=== PATIENT | female | born 1985 | race Two or more races ===

== ENCOUNTER → 2016-08-20 | Outpatient (REF) | payer OTHER | LOC: M SFHCLERA 13:51 | PROVIDERS: ATTEND Family Medicine | DX: J02.9 Acute pharyngitis, unspecified (principal); N39.0 Urinary tract infection, site not specified ==

== ENCOUNTER 2016-09-07 11:58 | Outpatient (CLI) | payer OTHER ==
[~2016-09-07] VITALS: Ht 158.8 cm; Wt 47.0 kg
[~2016-09-07 11:58] MED LIST: diphenhydrAMINE 25 MG CAP PO SCH
[2016-09-07] MEDS ORDERED: INFLIXIMAB IV ONE (12:15)
[2016-09-07] MEDS ORDERED: NS IV ONE (12:15)
[2016-09-07] MEDS ORDERED: NS 1,000 ML IV SCH (12:15)
[2016-09-07] MEDS ORDERED: OMEP40CA2 PO (15:00)
[2016-09-07] MEDS ORDERED: AUGM875T27 PO (15:00)
[2016-09-07] MEDS ORDERED: BENT10CA PO (15:01)
== END 2016-09-07 15:00 | disposition home or self-care (01) ==
LOC: M INFU 11:58
PROVIDERS: ATTEND Internal Medicine
DX: K50.00 Crohn's disease of small intestine without complications (principal)
CPT/HCPCS: 96413; 96415; J1745

== ENCOUNTER → 2016-10-22 | Outpatient (CLI) | payer OTHER ==
[~2016-10-22] MED LIST changes: +AUGM875T27 PO; +BENT10CA PO; +OMEP40CA2 PO; -diphenhydrAMINE 25 MG CAP PO SCH
[2016-10-22 20:08] LABS: MEAN CORPUSCULAR HEMOGLOBIN 30.6 pg (27.0-33.0); MEAN CORPUSCULAR HGB CONC 33.2 g/dl (32.0-36.5); MEAN CORPUSCULAR VOLUME 92.1 fl (80.0-96.0); RED CELL DISTRIBUTION WIDTH 12.3 % (11.5-14.5); WHITE BLOOD COUNT 6.2 K/mm3 (4.0-10.0)
== END ==
LOC: M LRY 10:19
PROVIDERS: ATTEND Internal Medicine Gastroenterology
DX: K50.00 Crohn's disease of small intestine without complications (principal); R21 Rash and other nonspecific skin eruption
CPT/HCPCS: 36415; 80299; 82397; 85027; 85652; 86140; G0463

== ENCOUNTER → 2016-10-23 | Outpatient (REF) | payer OTHER | LOC: M LAB REF 08:16 | PROVIDERS: ATTEND Internal Medicine Gastroenterology | DX: K50.00 Crohn's disease of small intestine without complications (principal); R21 Rash and other nonspecific skin eruption ==

== ENCOUNTER 2016-10-25 09:53 | Outpatient (CLI) | payer OTHER ==
[~2016-10-25 09:53] MED LIST changes: +INFLIXIMAB IV ONE; +NS 1,000 ML IV SCH; +NS IV ONE; +diphenhydrAMINE 25 MG CAP PO SCH
== END 2016-10-25 12:35 | disposition home or self-care (01) ==
LOC: M INFU 09:53
PROVIDERS: ATTEND General Practice
DX: K50.00 Crohn's disease of small intestine without complications (principal)
CPT/HCPCS: 96413; 96415; J1745

== ENCOUNTER 2016-12-02 12:59 | Outpatient (RCR) | payer OTHER ==
[~2016-12-02 12:59] MED LIST changes: -INFLIXIMAB IV ONE; -NS 1,000 ML IV SCH; -NS IV ONE; -diphenhydrAMINE 25 MG CAP PO SCH
[2016-12-07] MEDS ORDERED: INFL10VL IV (11:29)
== END 2016-12-12 ==
LOC: M OT 12:59
PROVIDERS: ATTEND Family Medicine
DX: Z51.89 Encounter for other specified aftercare (principal); M65.4 Radial styloid tenosynovitis [de Quervain]

== ENCOUNTER 2016-12-07 11:17 | Emergency (ER) | payer OTHER ==
[~2016-12-07] VITALS: Ht 157.5 cm; Wt 49.9 kg
[2016-12-07] MEDS ORDERED: INFL10VL IV (11:29)
[2016-12-07] MEDS ORDERED: NS 1,000 ML IV ONE (13:15)
[2016-12-07] MEDS ORDERED: methylPREDNISolone INJ 125 MG/2 ML VIAL (J2930) IV ONE (13:15)
[2016-12-07 13:53] LABS: BASO % 0.2 % (0.0-1.0); EOS # 0.1 K/mm3 (0.0-0.50); EOS % 0.9 % (0.0-3.0); LARGE UNSTAINED CELL # 0.1 K/mm3 (0.0-0.4); LARGE UNSTAINED CELL % 1.1 % (0.0-4.0); LYMPH % 21.4 % (24.0-44.0); MEAN CORPUSCULAR HEMOGLOBIN 31.6 pg (27.0-33.0); MEAN CORPUSCULAR HGB CONC 34.2 g/dl (32.0-36.5); MEAN CORPUSCULAR VOLUME 92.4 fl (80.0-96.0); MONO # 0.3 K/mm3 (0.0-0.8); MONO % 2.7 % (0.0-5.0); NEUTROPHILS # 6.8 K/mm3 (1.8-7.7); NEUTROPHILS % 73.8 % (36.0-66.0); PLATELET COUNT, AUTOMATED 246 k/mm3 (150-450); RED CELL DISTRIBUTION WIDTH 12.8 % (11.5-14.5); WHITE BLOOD COUNT 9.2 K/mm3 (4.0-10.0)
[2016-12-07 13:54] LABS: CONTROL LINE HCG INT CTR LINE PRESENT
[2016-12-07 14:03] LABS: ALBUMIN 4.2 GM/DL (3.2-5.2); ALBUMIN/GLOBULIN RATIO 1.24 (1.00-1.93); ALKALINE PHOSPHATASE 74 U/L (45-117); ALT/SGPT 27 U/L (12-78); AST/SGOT 18 U/L (15-37); BILIRUBIN,DIRECT 0.1 MG/DL (0.0-0.2); BILIRUBIN,TOTAL 0.5 MG/DL (0.2-1.0); TOTAL PROTEIN 7.6 GM/DL (6.4-8.2)
[2016-12-07 14:35] VITALS: BP 100/64
== END 2016-12-07 14:37 | disposition home or self-care (01) ==
LOC: M ED 12:27
DX: K50.90 Crohn's disease, unspecified, without complications (principal); Z88.8 Allergy status to other drugs, medicaments and biological substances; Z88.2 Allergy status to sulfonamides; Z79.899 Other long term (current) drug therapy
CPT/HCPCS: 80076; 84703; 85025; 96374; 99282; J2930

== ENCOUNTER → 2016-12-09 | Outpatient (CLI) | payer OTHER ==
[~2016-12-09] MED LIST changes: +INFL10VL IV
--- NOTE | 2016-12-09 20:48 | REP ---
Clinical: Pain. Technique: AP, lateral, bilateral oblique views right hand. Findings: The osseous structures and joint spaces are intact and normal. There is no evidence for acute fracture or dislocation. Surrounding soft tissues are unremarkable. No subcutaneous emphysema or radiodense foreign body. Impression: Normal right hand examination. No acute fracture or dislocation. . Signed by Hugo Rousseau MD 12/09/2016 05:51 P
== END ==
LOC: M LRY 13:51
PROVIDERS: ATTEND Family Medicine
DX: M65.4 Radial styloid tenosynovitis [de Quervain] (principal)
CPT/HCPCS: 73130; G0463

== ENCOUNTER 2016-12-21 12:11 | Outpatient (CLI) | payer OTHER ==
[2016-12-21] MEDS: diphenhydrAMINE 25 MG CAP PO SCH ×2 (12:24→13:35)
[2016-12-21] MEDS ORDERED: inFLIXimab INJECTION 400 MG in NS 210 ML IV ONE (12:30)
[2016-12-21] MEDS ORDERED: NS 1,000 ML IV SCH (12:30)
== END 2016-12-21 16:45 | disposition home or self-care (01) ==
LOC: M INFU 12:11
PROVIDERS: ATTEND Hospitalist
DX: K50.00 Crohn's disease of small intestine without complications (principal)
CPT/HCPCS: 96413; 96415; J1745

== ENCOUNTER → 2016-12-23 | Outpatient (REF) | payer OTHER ==
[2016-12-29 08:07] LABS: CALPROTECTIN STOOL 41 ug/g (0-120); O+P EXAM Final report (.)
== END ==
LOC: M LAB REF 20:55
PROVIDERS: ATTEND Internal Medicine Gastroenterology
DX: R19.7 Diarrhea, unspecified (principal); R19.5 Other fecal abnormalities

== ENCOUNTER 2017-02-06 08:32 | Emergency (ER) | payer OTHER ==
[~2017-02-06] VITALS: Ht 160 cm; Wt 46.0 kg
[~2017-02-06 08:32] MED LIST changes: -AUGM875T27 PO; +AUGM875T28 PO
[2017-02-06] MEDS ORDERED: NS 1,000 ML IV ONE (09:30)
[2017-02-06] MEDS ORDERED: MORPHINE 4 MG/ML 1ML SYRINGE IV ONE (09:30)
[2017-02-06] MEDS ORDERED: ONDANSETRON 4MG/2ML VIAL (J2405) IV ONE (09:30)
[2017-02-06 09:44] LABS: BASO # 0.1 K/mm3 (0.0-0.2); BASO % 0.9 % (0.0-1.0); EOS # 0.1 K/mm3 (0.0-0.50); EOS % 1.6 % (0.0-3.0); LARGE UNSTAINED CELL # 0.2 K/mm3 (0.0-0.4); LYMPH # 2.8 K/mm3 (1.5-4.5); LYMPH % 39.2 % (24.0-44.0); MEAN CORPUSCULAR HEMOGLOBIN 31.7 pg (27.0-33.0); MEAN CORPUSCULAR HGB CONC 33.5 g/dl (32.0-36.5); MEAN CORPUSCULAR VOLUME 94.8 fl (80.0-96.0); MONO # 0.4 K/mm3 (0.0-0.8); MONO % 5.3 % (0.0-5.0); NEUTROPHILS # 3.7 K/mm3 (1.8-7.7); PLATELET COUNT, AUTOMATED 243 k/mm3 (150-450); RED CELL DISTRIBUTION WIDTH 12.2 % (11.5-14.5); WHITE BLOOD COUNT 7.3 K/mm3 (4.0-10.0)
[2017-02-06 09:55] LABS: ALBUMIN 4.3 GM/DL (3.2-5.2); ALBUMIN/GLOBULIN RATIO 1.08 (1.00-1.93); ALKALINE PHOSPHATASE 79 U/L (45-117); ALT/SGPT 29 U/L (12-78); ANION GAP 5 MEQ/L (8-16); AST/SGOT 21 U/L (15-37); BILIRUBIN,TOTAL 0.8 MG/DL (0.2-1.0); BLOOD UREA NITROGEN 9 MG/DL (7-18); CALCIUM LEVEL 9.2 MG/DL (8.5-10.1); CARBON DIOXIDE LEVEL 28 MEQ/L (21-32); CHLORIDE LEVEL 106 MEQ/L (98-107); CREATININE FOR GFR 0.65 MG/DL (0.55-1.02); GLOMERULAR FILTRATION RATE > 60.0 (>60); GLUCOSE, FASTING 89 MG/DL (70-105); POTASSIUM SERUM 3.6 MEQ/L (3.5-5.1); SODIUM LEVEL 139 MEQ/L (136-145); TOTAL PROTEIN 8.3 GM/DL (6.4-8.2)
[2017-02-06 10:14] VITALS: BP 127/70
[2017-02-06] MEDS ORDERED: PYRI1TAB5 PO (10:36)
[2017-02-06] MEDS ORDERED: NORCOTAB PO (10:36)
[2017-02-06] MEDS ORDERED: ZOFR4TAB3 PO (10:36)
--- NOTE | 2017-02-06 11:30 | REP ---
CT ABDOMEN AND PELVIS WITHOUT CONTRAST: 02/06/2017 COMPARISON: CT with contrast 01/20/2016. CLINICAL HISTORY: Left-sided flank and abdominal pain. FINDINGS: CT ABDOMEN: Renal stone protocol was utilized. The lung bases are clear. Heart is not enlarged. There is no pericardial thickening or effusion. There is no hepatosplenomegaly, focal hepatic mass or intrahepatic biliary dilatation. Gallbladder shows no calcified stone or mass. Adrenal glands are normal. Stomach partially filled with air but no wall thickening or mass. The aorta is without aneurysm and no periaortic or other retroperitoneal pathologic sized lymphadenopathy. Colon shows stool and gas scattered throughout without signs of colitis or diverticulitis in the abdomen proper. Lung window review of all CT slices in the abdomen and pelvis shows no perforation or free air. No abscess. The kidneys show no stone, mass, cyst or hydronephrosis. No perinephric fluid. Their size is symmetric. The left ureter is not dilated and shows a normal course to the bladder. However, on image 105 and 106, there is a 2.5 mm stone at the UVJ bladder wall junction. The right kidney collecting system and ureter show no stone, hydronephrosis or hydroureter UVJ is unremarkable on the right. The bladder itself showed no stone within it. Bone windows show lumbar, lower thoracic spine, posterior elements and the visualized ribs all intact. CT PELVIS: Lumbosacral junction, sacrum, SI joints, pelvis, hips and symphysis pubis are all unremarkable. No bladder wall thickening or mass and the 2.5 mm stone is seen at the left UPJ bladder wall junction. Uterus anteverted and not enlarged. No adnexal mass on the left. The right ovary shows a 1.8 cm dominant follicle (stone defined at 2.5 cm). No pelvic free fluid. Distal left colon, sigmoid and rectum without colitis or diverticulitis. No inflammatory changes about the cecum. No ventral or inguinal hernia. IMPRESSION: 1. There is a 2.5 mm stone in the distal left ureter at the UVJ bladder wall junction (see images 105 and 106) without hydroureter, hydronephrosis, renal stone on either side or ureteral stone on the right. Bladder without wall thickening or stone within it. 2. No colitis, diverticulitis, stricture or mass. No ascites or free air. 3. Dominant follicle right ovary 1.8 cm. No pelvic free fluid. No other finding. Signed by Nawaf Martin MD 02/06/2017 07:32 P
== END 2017-02-06 10:48 | disposition home or self-care (01) ==
LOC: M ED 09:48
DX: N83.01 Follicular cyst of right ovary (principal); N20.1 Calculus of ureter; R11.0 Nausea; K58.9 Irritable bowel syndrome, unspecified; Z88.2 Allergy status to sulfonamides; Z88.8 Allergy status to other drugs, medicaments and biological substances; Z79.899 Other long term (current) drug therapy; Z87.442 Personal history of urinary calculi
CPT/HCPCS: 74176; 80053; 81001; 81025; 83690; 85025; 87086; 96361; 96374; 96375; 99284; J2405

== ENCOUNTER 2017-02-08 11:53 | Outpatient (CLI) | payer OTHER ==
[~2017-02-08] VITALS: Ht 158.8 cm; Wt 47.0 kg
[~2017-02-08 11:53] MED LIST changes: +AUGM875T27 PO; -AUGM875T28 PO; +NORCOTAB PO; +PYRI200T5 PO; +ZOFR4TAB3 PO; +diphenhydrAMINE 25 MG CAP PO SCH
[2017-02-08] MEDS ORDERED: inFLIXimab INJECTION 400 MG in NS 210 ML IV ONE (13:00)
[2017-02-08] MEDS ORDERED: NS 1,000 ML IV SCH (13:00)
== END 2017-02-08 15:20 | disposition home or self-care (01) ==
LOC: M INFU 11:53
PROVIDERS: ATTEND Internal Medicine
DX: K50.00 Crohn's disease of small intestine without complications (principal)
CPT/HCPCS: 96413; 96415; J1745

== ENCOUNTER → 2017-03-09 | Outpatient (REF) | payer OTHER ==
[~2017-03-09] MED LIST changes: -AUGM875T27 PO; +AUGM875T28 PO; +AZO95TAB PO; +CIPR-249 PO; +GIANVI; +OMEP40CA2; +PENI500T PO; +PRED20TA PO; +PYRI1TAB5 PO; -PYRI200T5 PO; +TYLE325C PO; -diphenhydrAMINE 25 MG CAP PO SCH
== END ==
LOC: M SFHCLERA 11:33
PROVIDERS: ATTEND Nurse Practitioner Family
DX: J02.9 Acute pharyngitis, unspecified (principal); R30.0 Dysuria

== ENCOUNTER 2017-03-20 21:32 | Emergency (ER) | payer OTHER ==
[~2017-03-20] VITALS: Ht 160 cm; Wt 47.9 kg
[~2017-03-20 21:32] MED LIST changes: -AZO95TAB PO; -CIPR-249 PO; -GIANVI; -OMEP40CA2; -PENI500T PO; -PRED20TA PO; -TYLE325C PO
[2017-03-20 21:40] VITALS: BP 120/73
[2017-03-20] MEDS ORDERED: TYLE325C PO (21:43)
[2017-03-20] MEDS ORDERED: PENI500T PO (23:13)
[2017-03-20] MEDS ORDERED: PENICILLIN V POTASSIUM 500 MG TAB PO ONE (23:15)
== END 2017-03-20 23:27 | disposition home or self-care (01) ==
LOC: M ED 21:32
DX: J02.9 Acute pharyngitis, unspecified (principal); K58.9 Irritable bowel syndrome, unspecified; Z87.442 Personal history of urinary calculi; Z79.899 Other long term (current) drug therapy; Z88.2 Allergy status to sulfonamides

== ENCOUNTER → 2017-03-30 | Outpatient (CLI) | payer OTHER ==
[~2017-03-30] MED LIST changes: +AZO95TAB PO; +CIPR-249 PO; +GIANVI; +OMEP40CA2; +PENI500T PO; +PRED20TA PO; +TYLE325C PO
[2017-03-30 20:40] LABS: BASO % 0.6 % (0.0-1.0); EOS # 0.1 K/mm3 (0.0-0.50); EOS % 1.7 % (0.0-3.0); LARGE UNSTAINED CELL # 0.1 K/mm3 (0.0-0.4); LARGE UNSTAINED CELL % 1.9 % (0.0-4.0); LYMPH # 2.7 K/mm3 (1.5-4.5); LYMPH % 33.8 % (24.0-44.0); MEAN CORPUSCULAR HEMOGLOBIN 30.6 pg (27.0-33.0); MEAN CORPUSCULAR HGB CONC 32.2 g/dl (32.0-36.5); MONO # 0.4 K/mm3 (0.0-0.8); MONO % 4.6 % (0.0-5.0); NEUTROPHILS # 4.4 K/mm3 (1.8-7.7); NEUTROPHILS % 57.5 % (36.0-66.0); PLATELET COUNT, AUTOMATED 331 k/mm3 (150-450); RED CELL DISTRIBUTION WIDTH 12.6 % (11.5-14.5); WHITE BLOOD COUNT 7.6 K/mm3 (4.0-10.0)
[2017-03-30 20:42] LABS: ALBUMIN 4.3 GM/DL (3.2-5.2); ALBUMIN/GLOBULIN RATIO 1.16 (1.00-1.93); ALKALINE PHOSPHATASE 80 U/L (45-117); ALT/SGPT 30 U/L (12-78); ANION GAP 3 MEQ/L (8-16); AST/SGOT 21 U/L (15-37); BILIRUBIN,TOTAL 0.7 MG/DL (0.2-1.0); BLOOD UREA NITROGEN 11 MG/DL (7-18); CALCIUM LEVEL 9.7 MG/DL (8.5-10.1); CARBON DIOXIDE LEVEL 32 MEQ/L (21-32); CHLORIDE LEVEL 105 MEQ/L (98-107); CREATININE FOR GFR 0.71 MG/DL (0.55-1.02); GLOMERULAR FILTRATION RATE > 60.0 (>60); GLUCOSE, FASTING 78 MG/DL (70-105); POTASSIUM SERUM 4.4 MEQ/L (3.5-5.1); SODIUM LEVEL 140 MEQ/L (136-145)
== END ==
LOC: M LRY 16:47
PROVIDERS: ATTEND Internal Medicine Gastroenterology
DX: K50.90 Crohn's disease, unspecified, without complications (principal)
CPT/HCPCS: 36415; 80053; 85025; G0463

== ENCOUNTER 2017-04-07 12:05 | Outpatient (CLI) | payer OTHER ==
[~2017-04-07] VITALS: Ht 158.8 cm; Wt 47.0 kg
[~2017-04-07 12:05] MED LIST changes: -AZO95TAB PO; -CIPR-249 PO; -GIANVI; -OMEP40CA2; -PRED20TA PO; +diphenhydrAMINE 25 MG CAP PO SCH
[2017-04-07] MEDS ORDERED: NS 1,000 ML IV SCH (13:00)
[2017-04-07] MEDS ORDERED: inFLIXimab INJECTION 400 MG in NS 210 ML IV ONE (13:00)
== END 2017-04-07 15:10 | disposition home or self-care (01) ==
LOC: M INFU 12:05
PROVIDERS: ATTEND General Practice
DX: K50.90 Crohn's disease, unspecified, without complications (principal); Z88.8 Allergy status to other drugs, medicaments and biological substances; Z88.2 Allergy status to sulfonamides; Z79.899 Other long term (current) drug therapy
CPT/HCPCS: 96413; 96415; J1745

== ENCOUNTER 2017-04-18 12:31 | Emergency (ER) | payer OTHER ==
[~2017-04-18] VITALS: Ht 160 cm; Wt 49.0 kg
[~2017-04-18 12:31] MED LIST changes: -diphenhydrAMINE 25 MG CAP PO SCH
[2017-04-18] MEDS ORDERED: AZO95TAB PO (12:53)
[2017-04-18 14:40] LABS: CONTROL LINE UCG INT CTR LINE PRESENT
[2017-04-18] MEDS ORDERED: CIPROFLOXACIN 500 MG TAB PO ONE (15:00)
[2017-04-18] MEDS ORDERED: CIPR-249 PO (15:03)
[2017-04-18 15:10] VITALS: BP 114/66
== END 2017-04-18 15:12 | disposition home or self-care (01) ==
LOC: M ED 12:31
DX: N39.0 Urinary tract infection, site not specified (principal); K58.9 Irritable bowel syndrome, unspecified; Z79.899 Other long term (current) drug therapy

== ENCOUNTER 2017-05-19 12:01 | Outpatient (CLI) | payer OTHER ==
[~2017-05-19 12:01] MED LIST changes: +AZO95TAB PO; +CIPR-249 PO
[2017-05-19] MEDS ORDERED: inFLIXimab INJECTION 400 MG in NS 210 ML IV ONE (12:30)
[2017-05-19] MEDS ORDERED: diphenhydrAMINE 25 MG CAP PO ONE (12:30)
[2017-05-19] MEDS ORDERED: NS 1,000 ML IV SCH (12:30)
== END 2017-05-19 15:00 | disposition home or self-care (01) ==
LOC: M INFU 12:01
PROVIDERS: ATTEND Internal Medicine
DX: K50.00 Crohn's disease of small intestine without complications (principal); K21.9 Gastro-esophageal reflux disease without esophagitis; Z87.442 Personal history of urinary calculi; Z88.2 Allergy status to sulfonamides; Z88.8 Allergy status to other drugs, medicaments and biological substances; Z79.899 Other long term (current) drug therapy
CPT/HCPCS: 96413; 96415; J1745

== ENCOUNTER 2017-06-10 23:40 | Emergency (ER) | payer OTHER ==
[~2017-06-10] VITALS: Ht 160 cm; Wt 49.0 kg
[2017-06-10] MEDS ORDERED: GIANVI (23:51)
[2017-06-10] MEDS ORDERED: OMEP40CA2 (23:51)
[2017-06-11 00:27] LABS: BASO % 0.1 % (0.0-1.0); EOS # 0.2 10^3/uL (0.0-0.50); EOS % 1.4 % (0.0-3.0); IMMATURE GRANULOCYTE % 0.3 % (0-0); LYMPH # 4.2 10^3/uL (1.5-4.5); LYMPH % 30.1 % (24.0-44.0); MEAN CORPUSCULAR HGB CONC 34.2 g/dl (32.0-36.5); MEAN CORPUSCULAR VOLUME 90.6 fl (80.0-96.0); MONO # 0.6 10^3/uL (0.0-0.8); MONO % 4.4 % (0.0-5.0); NEUTROPHILS # 8.8 10^3/uL (1.8-7.7); NEUTROPHILS % 63.7 % (36.0-66.0); PLATELET COUNT, AUTOMATED 295 10^3/uL (150-450); RED CELL DISTRIBUTION WIDTH 12.4 % (11.5-14.5); WHITE BLOOD COUNT 13.9 10^3/uL (4.0-10.0)
[2017-06-11] MEDS ORDERED: GASTROGRAFIN SOLUTION 30ML (Q9963) PO ONE ×2 (00:35→12:35)
[2017-06-11] MEDS ORDERED: MORPHINE 4 MG/ML 1ML SYRINGE IV ONE ×2 (00:45→04:45)
[2017-06-11] MEDS ORDERED: NS 1,000 ML IV ONE (00:45)
[2017-06-11 00:49] LABS: CONTROL LINE HCG INT CTR LINE PRESENT
[2017-06-11 00:57] LABS: ALBUMIN 3.9 GM/DL (3.2-5.2); ALBUMIN/GLOBULIN RATIO 0.91 (1.00-1.93); ALKALINE PHOSPHATASE 65 U/L (45-117); ALT/SGPT 32 U/L (12-78); AMYLASE 135 U/L (25-115); ANION GAP 4 MEQ/L (8-16); AST/SGOT 18 U/L (7-37); BILIRUBIN,DIRECT 0.1 MG/DL (0.0-0.2); BILIRUBIN,TOTAL 0.4 MG/DL (0.2-1.0); BLOOD UREA NITROGEN 13 MG/DL (7-18); CALCIUM LEVEL 9.3 MG/DL (8.5-10.1); CARBON DIOXIDE LEVEL 29 MEQ/L (21-32); CHLORIDE LEVEL 105 MEQ/L (98-107); CREATININE FOR GFR 0.63 MG/DL (0.55-1.02); GLOMERULAR FILTRATION RATE > 60.0 (>60); GLUCOSE, FASTING 93 MG/DL (70-105); SODIUM LEVEL 138 MEQ/L (136-145); TOTAL PROTEIN 8.2 GM/DL (6.4-8.2)
[2017-06-11] MEDS ORDERED: ISOVUE-370 76% 100ML VIAL (Q9967) As Ordered ONE (01:20)
--- NOTE | 2017-06-11 04:40 | REPUSA ---
CLINICAL HISTORY: Abdominal pain. TECHNIQUE: Multiple axial, sagittal and coronal CT images were obtained through the abdomen and pelvi s after administration of oral and intravenous contrast material. COMMENTS: Comparison to prior exam 01/20/2016. Interval appearance of diffuse thickening of the transverse, descending and sigmoid colon. Interval appearance of diffuse thickening and enhancement of the terminal ileum. Interval appearance of hepatomegaly with fatty liver infiltration. The liver is of uniform attenuation without mass or defect. There is no intra or extrahepatic biliary ductal dilatation. The spleen is normal. The gallbladder is within normal limits. The pancreas is of normal contour and attenuation characteristics. There is no evidence of adrenal mass. Both kidneys demonstrate prompt and equal nephrograms. The kidneys are normal in size, shape and conf iguration. There is no evidence of renal or ureteral mass. No renal or ureteral calculi are identifie d. There is no hydroureter or hydronephrosis. No evidence for appendicitis. No evidence for small or large bowel obstruction. There is no evidence of abdominal ascites or lymphadenopathy. There is no evidence of intrinsic or extrinsic bladder mass. There is no pelvic ascites or lymphadeno francine. Images of the lung bases show no evidence of pleural or parenchymal mass. There are no pleural effusi ons. The bony structures are free of lytic or blastic lesions. IMPRESSION: Interval appearance of enterocolitis. No perforation or abscess formation. No evidence of pneumatosis intestinalis. Thank you for your kind referral of this patient.
[2017-06-11] MEDS ORDERED: dexameTHASONE 20 MG/5 ML VIAL (J1100) IV ONE (04:45)
[2017-06-11] MEDS ORDERED: PRED20TA PO (05:05)
[2017-06-11 05:42] VITALS: BP 102/61
[2017-06-11] MEDS ORDERED: GASTROGRAFIN SOLUTION 30ML PO ONE ×2 (12:00)
== END 2017-06-11 05:59 | disposition home or self-care (01) ==
LOC: M ED 23:40
DX: K51.90 Ulcerative colitis, unspecified, without complications (principal); K21.9 Gastro-esophageal reflux disease without esophagitis; Z79.2 Long term (current) use of antibiotics; Z79.899 Other long term (current) drug therapy; Z88.8 Allergy status to other drugs, medicaments and biological substances; Z88.1 Allergy status to other antibiotic agents; Z88.2 Allergy status to sulfonamides
CPT/HCPCS: 36415; 74177; 80048; 80076; 81001; 82150; 83605; 83690; 84703; 85025; 87086; 96374; 96375; 99284; J1100; Q9963; Q9967

== ENCOUNTER 2017-07-12 12:09 | Outpatient (CLI) | payer OTHER ==
[~2017-07-12] VITALS: Ht 158.8 cm; Wt 47.0 kg
[~2017-07-12 12:09] MED LIST changes: +GIANVI; +OMEP40CA2; +PRED20TA PO
[2017-07-12] MEDS ORDERED: NS 1,000 ML IV SCH (13:00)
[2017-07-12] MEDS ORDERED: ACETAMINOPHEN TAB 650MG DOSE (2X325MG) PO ONE (13:00)
[2017-07-12] MEDS ORDERED: diphenhydrAMINE 25 MG CAP PO ONE (13:00)
[2017-07-12] MEDS ORDERED: INFLIXIMAB BIOSIMILAR 400 MG in NS 210 ML IV ONE (13:00)
== END 2017-07-12 15:15 | disposition home or self-care (01) ==
LOC: M INFU 12:09
PROVIDERS: ATTEND Internal Medicine
DX: K50.00 Crohn's disease of small intestine without complications (principal); Z88.8 Allergy status to other drugs, medicaments and biological substances; Z88.2 Allergy status to sulfonamides; Z87.442 Personal history of urinary calculi; Z79.899 Other long term (current) drug therapy
CPT/HCPCS: 96413; 96415; Q5102

== ENCOUNTER → 2017-07-25 | Outpatient (CLI) | payer OTHER | LOC: M LRY 10:50 | PROVIDERS: ATTEND Internal Medicine Gastroenterology | DX: R94.5 Abnormal results of liver function studies (principal) ==

== ENCOUNTER → 2017-07-26 | Outpatient (CLI) | payer OTHER ==
[2017-07-26 20:50] LABS: INR 0.94
[2017-07-26 20:59] LABS: ALBUMIN 4.3 GM/DL (3.2-5.2); ALBUMIN/GLOBULIN RATIO 1.02 (1.00-1.93); ALKALINE PHOSPHATASE 77 U/L (45-117); ALT/SGPT 32 U/L (12-78); AST/SGOT 20 U/L (7-37); BILIRUBIN,DIRECT < 0.1 MG/DL (0.0-0.2); BILIRUBIN,TOTAL 0.3 MG/DL (0.2-1.0); FERRITIN 49 NG/ML (8-252); PERCENT SATURATION 10.5 % (13.2-45.0); TOTAL IRON BINDING CAPACITY 354 UG/DL (250-450); TOTAL PROTEIN 8.5 GM/DL (6.4-8.2)
[2017-07-27 12:02] LABS: HEPATITIS B SURFACE ANTIBODY NEGATIVE (POSITIVE)
[2017-07-28 12:20] LABS: ALBUMIN 4.95 GM/DL (3.29-5.55); ALBUMIN % 58.2 % (55.8-66.1); GAMMA GLOBULIN % 16.8 % (11.1-18.8)
[2017-07-29 00:06] LABS: ALPHA 1 ANTITRYPSIN 163 mg/dL (90-200); TISSUE TRANSGLUTAMINASE IgG <2 U/mL (0-5)
== END ==
LOC: M LRY 16:34
PROVIDERS: ATTEND Internal Medicine Gastroenterology
DX: R94.5 Abnormal results of liver function studies (principal)

== ENCOUNTER → 2017-07-29 | Outpatient (CLI) | payer OTHER ==
[2017-08-02 08:06] LABS: ALT 27 IU/L (0-40); GGT 14 IU/L (0-60); HAPTOGLOBIN 48 mg/dL (34-200); NECROINFLAMM GRADE A0-No activity (.); TOTAL BILIRUBIN 0.7 mg/dL (0.0-1.2)
== END ==
LOC: M LRY 14:23
PROVIDERS: ATTEND Internal Medicine Gastroenterology
DX: R94.5 Abnormal results of liver function studies (principal); K50.90 Crohn's disease, unspecified, without complications

== ENCOUNTER → 2017-08-19 | Outpatient (REF) | payer OTHER | LOC: M SFHCLERA 16:14 | DX: R39.9 Unspecified symptoms and signs involving the genitourinary system (principal) ==

== ENCOUNTER → 2017-09-01 | Outpatient (REF) | payer OTHER | LOC: M SFHCLERA 14:26 | DX: R30.0 Dysuria (principal) ==

== ENCOUNTER → 2017-09-06 | Outpatient (REF) | payer OTHER | LOC: M SFHCLERA 20:42 | DX: R30.0 Dysuria (principal) ==

== ENCOUNTER 2017-09-07 23:28 | Emergency (ER) | payer OTHER ==
[2017-09-08 02:52] LABS: BASO % 0.1 % (0.0-1.0); EOS # 0.1 10^3/uL (0.0-0.50); EOS % 0.6 % (0.0-3.0); HEMATOCRIT 37.8 % (36.0-47.0); HEMOGLOBIN 12.4 g/dl (12.0-16.0); IMMATURE GRANULOCYTE % 0.2 % (0-0); LYMPH # 2.7 10^3/uL (1.5-4.5); LYMPH % 23.3 % (24.0-44.0); MEAN CORPUSCULAR HEMOGLOBIN 30.8 pg (27.0-33.0); MEAN CORPUSCULAR HGB CONC 32.8 g/dl (32.0-36.5); MEAN CORPUSCULAR VOLUME 93.8 fl (80.0-96.0); MONO # 0.5 10^3/uL (0.0-0.8); MONO % 4.3 % (0.0-5.0); NEUTROPHILS # 8.2 10^3/uL (1.8-7.7); NEUTROPHILS % 71.5 % (36.0-66.0); PLATELET COUNT, AUTOMATED 272 10^3/uL (150-450); RED BLOOD COUNT 4.03 10^6/uL (4.00-5.40); RED CELL DISTRIBUTION WIDTH 12.2 % (11.5-14.5); WHITE BLOOD COUNT 11.5 10^3/uL (4.0-10.0)
[2017-09-08 02:54] LABS: CONTROL LINE HCG INT CTR LINE PRESENT; HCG, SERUM QUALITATIVE NEGATIVE (NEGATIVE)
[2017-09-08 03:00] LABS: ANION GAP 7 MEQ/L (8-16); BLOOD UREA NITROGEN 10 MG/DL (7-18); CALCIUM LEVEL 8.6 MG/DL (8.5-10.1); CARBON DIOXIDE LEVEL 28 MEQ/L (21-32); CHLORIDE LEVEL 107 MEQ/L (98-107); CREATININE FOR GFR 0.55 MG/DL (0.55-1.02); GLOMERULAR FILTRATION RATE > 60.0 (>60); GLUCOSE, FASTING 111 MG/DL (70-100); POTASSIUM SERUM 4.1 MEQ/L (3.5-5.1); SODIUM LEVEL 142 MEQ/L (136-145)
[2017-09-08 03:02] LABS: KETONE, URINE AUTO RFX NEGATIVE (NEGATIVE); LEUKOCYTE ESTERASE UR AUTO RFX NEGATIVE (NEGATIVE); MUCUS, URINE RFX SMALL (NEGATIVE); NITRITE, URINE AUTO RFX POSITIVE (NEGATIVE); RBC, URINE AUTO RFX 4 /HPF (0-3); SPECIFIC GRAVITY UR AUTO RFX 1.012 (1.002-1.035); SQUAM EPITHELIAL CELL UR AURFX 2 /HPF (0-6); WBC, URINE AUTO RFX 12 /HPF (0-3)
== END 2017-09-08 05:20 | disposition home or self-care (01) ==
LOC: M ED 23:28
DX: N30.90 Cystitis, unspecified without hematuria (principal); K59.00 Constipation, unspecified; K50.90 Crohn's disease, unspecified, without complications; Z79.899 Other long term (current) drug therapy; Z88.8 Allergy status to other drugs, medicaments and biological substances; Z88.1 Allergy status to other antibiotic agents; Z88.2 Allergy status to sulfonamides; Z87.442 Personal history of urinary calculi; Z98.890 Other specified postprocedural states
CPT/HCPCS: 74176

== ENCOUNTER → 2017-09-24 | Outpatient (REF) | payer OTHER | LOC: M SFHCLERA 12:00 | DX: Z91.013 Allergy to seafood (principal) ==

== ENCOUNTER → 2017-09-24 | Outpatient (CLI) | payer OTHER ==
[2017-09-24 16:18] LABS: ALBUMIN 4.1 GM/DL (3.2-5.2); ALBUMIN/GLOBULIN RATIO 1.08 (1.00-1.93); ALKALINE PHOSPHATASE 70 U/L (45-117); ALT/SGPT 38 U/L (12-78); AST/SGOT 27 U/L (7-37); BILIRUBIN,DIRECT 0.2 MG/DL (0.0-0.2); CHOLESTEROL LEVEL 178 MG/DL (<200); CHOLESTEROL RISK RATIO 3.296 (<5); HDL CHOLESTEROL 54 MG/DL (>40); NON-HDL-C 124 MG/DL; TOTAL PROTEIN 7.9 GM/DL (6.4-8.2); TRIGLYCERIDES LEVEL 100 MG/DL (<150)
== END ==
LOC: M LRY 12:06
DX: R94.5 Abnormal results of liver function studies (principal); K50.90 Crohn's disease, unspecified, without complications

== ENCOUNTER 2017-10-04 12:25 | Outpatient (CLI) | payer OTHER ==
[2017-10-04] MEDS: diphenhydrAMINE 25 MG CAP PO (12:48)
[2017-10-04] MEDS: NS 1,000 ML IV (12:49)
[2017-10-04] MEDS: NS IV (12:54)
[2017-10-04] MEDS: INFLIXIMAB IV (12:54)
== END 2017-10-04 16:30 | disposition home or self-care (01) ==
LOC: M INFU 12:25
DX: K50.90 Crohn's disease, unspecified, without complications (principal); Z79.899 Other long term (current) drug therapy; Z88.8 Allergy status to other drugs, medicaments and biological substances
CPT/HCPCS: J1745

== ENCOUNTER 2017-10-18 12:52 | Outpatient (CLI) | payer OTHER ==
[2017-10-18] MEDS: INFLIXIMAB IV (13:00)
[2017-10-18] MEDS: ACETAMINOPHEN TAB 650MG DOSE (2X325MG) PO (13:00)
[2017-10-18] MEDS: NS IV (13:00)
[2017-10-18] MEDS: diphenhydrAMINE 25 MG CAP PO (13:12)
[2017-10-18] MEDS: NS 1,000 ML IV (13:13)
== END 2017-10-18 16:00 | disposition home or self-care (01) ==
LOC: M INFU 12:52
DX: K50.90 Crohn's disease, unspecified, without complications (principal); Z88.8 Allergy status to other drugs, medicaments and biological substances; Z88.2 Allergy status to sulfonamides; Z79.899 Other long term (current) drug therapy
CPT/HCPCS: J1745

== ENCOUNTER → 2017-10-26 | Outpatient (REF) | payer OTHER | LOC: M SFHCLERA 09:53 | DX: J00 Acute nasopharyngitis [common cold] (principal) ==

== ENCOUNTER 2017-11-29 13:39 | Outpatient (CLI) | payer OTHER ==
[2017-11-29] MEDS: ACETAMINOPHEN TAB 650MG DOSE (2X325MG) PO (14:00)
[2017-11-29] MEDS: NS 1,000 ML IV (14:00)
[2017-11-29] MEDS: diphenhydrAMINE 25 MG CAP PO (14:14)
[2017-11-29] MEDS: NS IV (14:15)
[2017-11-29] MEDS: INFLIXIMAB IV (14:15)
== END 2017-11-29 17:00 | disposition home or self-care (01) ==
LOC: M INFU 13:39
DX: K50.90 Crohn's disease, unspecified, without complications (principal); Z79.899 Other long term (current) drug therapy; Z88.8 Allergy status to other drugs, medicaments and biological substances
CPT/HCPCS: J1745

== ENCOUNTER → 2018-01-12 | Outpatient (CLI) | payer OTHER ==
[2018-01-12 21:14] LABS: C REACTIVE PROTEIN QUANTITATIV 0.36 MG/DL (0.00-0.30)
[2018-01-12 21:18] LABS: ERYTHROCYTE SEDIMENTATION RATE 26 mm/hr (0-20)
[2018-01-18 10:20] LABS: ANTI-INFLIXIMAB ANTIBODY 10.4 Uml
== END ==
LOC: M LRY 15:28
DX: K50.90 Crohn's disease, unspecified, without complications (principal); M25.50 Pain in unspecified joint
CPT/HCPCS: 86140

== ENCOUNTER 2018-01-24 13:06 | Outpatient (CLI) | payer OTHER ==
[2018-01-24] MEDS: FILTER 1.2 MICRON (ADULT TPN/MANNITOL/REMICADE) XX (13:30)
[2018-01-24] MEDS: NS 1,000 ML IV (13:40)
[2018-01-24] MEDS: ACETAMINOPHEN TAB 650MG DOSE (2X325MG) PO (13:40)
[2018-01-24] MEDS: diphenhydrAMINE 25 MG CAP PO (13:40)
[2018-01-24] MEDS: NS IV (13:50)
[2018-01-24] MEDS: INFLIXIMAB IV (13:50)
== END 2018-01-24 16:00 | disposition home or self-care (01) ==
LOC: M INFU 13:06
DX: K50.90 Crohn's disease, unspecified, without complications (principal); Z87.442 Personal history of urinary calculi; Z88.8 Allergy status to other drugs, medicaments and biological substances; Z88.2 Allergy status to sulfonamides; Z79.899 Other long term (current) drug therapy
CPT/HCPCS: J1745